=== PATIENT | female | born 1960 | race Caucasian/White ===

== ENCOUNTER 2017-02-13 11:33 | Emergency (ER) | payer OTHER ==
[~2017-02-13] VITALS: Ht 170.2 cm; Wt 76.7 kg
[~2017-02-13 11:33] MED LIST: KRIL1000 PO; OCUVTAB4 PO
[2017-02-13 11:47] VITALS: BP 145/101; PULSE 76; RESP 18; TEMP 97.9; O2SAT 99
--- NOTE | 2017-02-13 12:20 | PD ---
HPI Chief Complaint: Musculoskeletal Complaint Time Seen by Provider: 11:40 Travel History International Travel<30 days: No Contact w/Intl Traveler<30days: No Traveled to known affect area: No History of Present Illness HPI 57 year old female presents emergency department for evaluation of left knee pain and swelling for 4 days. She reports that 4 days ago while getting out of the car she twisted the left knee which caused immediate pain and the swelling has progressed since that time. She reports the pain is localized within the anterior aspect of the knee, nonradiating, worse with flexion, relieved with extension, severity 6 out of 10. Patient reports taking OTC Motrin twice a day with little relief. She reports a history of meniscal tear in that knee. She is followed by with her. She denies numbness or tingling or weakness in the extremity. She has no other medical complaint. [facility] Past Medical History Medical History: Denies Significant Hx Diminished Hearing: No Tetanus Vaccination: < 5 Years Influenza Vaccination: Yes ?: Not Past Surgical History Hysterectomy: Yes Other Surgery: Yes (R CARPAL TUNNEL, LEFT KNEE MENISCUS REPAIR, R ROT CUFF) Social History Alcohol Use: Yes (OCC) Tobacco Use: No Substance Use: No Allergies-Medications (Allergen,Severity, Reaction): Coded Allergies: Penicillin (Verified Allergy, Severe, 02/13/17) Reported Meds & Prescriptions Reported Meds & Active Scripts Active Review of Systems Except as stated in HPI: all other systems reviewed are Neg Physical Exam Narrative GENERAL: Alert, well-appearing female SKIN: Focused skin assessment warm/dry. HEAD: Atraumatic. Normocephalic. EYES: Pupils equal and round. No scleral icterus. No injection or drainage. ENT: No nasal bleeding or discharge. Mucous membranes pink and moist. NECK: Trachea midline. No JVD. CARDIOVASCULAR: Regular rate and rhythm. No murmur appreciated. RESPIRATORY: No accessory muscle use. Clear to auscultation. Breath sounds equal bilaterally. GASTROINTESTINAL: Abdomen soft, non-tender, nondistended. Hepatic and splenic margins not palpable. MUSCULOSKELETAL: No obvious deformities. No clubbing. No cyanosis. No edema. Left knee: Small Joint effusion. Mild anterior tenderness. No warmth or erythema of the joint. The joint is stable. 2+ distal pulses. Normal motor and sensation in the lower extremity. NEUROLOGICAL: Awake and alert. No obvious cranial nerve deficits. Motor grossly within normal limits. Normal speech. PSYCHIATRIC: Appropriate mood and affect; insight and judgment normal. Data Data Last Documented VS Vital Signs Date Time Temp Pulse Resp B/P Pulse Ox O2 Delivery O2 Flow Rate FiO2 02/13/17 11:47 97.9 76 18 145/101 99 Orders Knee, Complete (4vws) (02/13/17 ) MDM Medical Decision Making Medical Screen Exam Complete: Yes Emergency Medical Condition: Yes Differential Diagnosis Internal derangement of the knee, knee sprain, knee fracture Narrative Course 57-year-old female presents emergency for evaluation of left knee pain and swelling 4 days after twisting injury. Patient has history of MCL tear with that knee previously. She is followed by with her. The joint is stable the extremity is neurovascularly intact x-ray pending X-ray of the left knee is negative for fracture shows a large joint effusion. Patient will be treated for knee sprain. Quinn wrap and crutches. NSAIDs. Follow-up with Ortho. Patient agrees to this plan Diagnosis Primary Impression: Knee sprain Qualified Code: S83.92XA - Sprain of left knee, unspecified ligament, initial encounter Referrals: Orthopedist Additional Instructions: Take the NSAIDs as prescribed. Use the Quinn wrap for compression. Ice and elevate the extremity. Make an appointment for follow-up with orthopedic. Return to emergency department if he developed new or worsening symptoms. Scripts Ibuprofen 800 Mg [id number] Mg PO Q8H PRN (Pain/Inflammation) #30 TAB Prov:Dasha Caro 02/13/17 Disposition: 01 DISCHARGE HOME Condition: Stable Dasha Caro Feb 13, 2017 12:20
--- NOTE | 2017-02-13 12:38 | RADRPT ---
EXAM DATE/TIME: 02/13/2017 12:19 [facility] COMPARISON: KNEE LEFT COMPLETE ([id number]), August 15, 2014, 16:54. INDICATIONS : Left knee pain & swelling with no known injury. MEDICAL HISTORY : None. SURGICAL HISTORY : Hysterectomy. Carpal tunnel syndrome. Left knee arthroscopy. Right rotator cuff repair. ENCOUNTER: Initial ACUITY: 4 - 6 days PAIN SCORE: 8/10 LOCATION: Left knee FINDINGS: 4 views of the left knee demonstrate no fracture or dislocation. Mineralization is within normal limi ts. There is lateral joint space narrowing. A moderate to large joint effusion is present. No soft ti ssue abnormality or radiopaque foreign body is identified. CONCLUSION: Large left knee joint effusion. No acute osseous abnormality is seen. Sagar Fofana MD on February 13, 2017 at 12:27 Board Certified Radiologist. This report was verified electronically.
[2017-02-13] MEDS ORDERED: IBUP800T23 PO (12:48)
[2017-02-13] MEDS ORDERED: KETOROLAC TROMETHAMINE 60 MG/2 ML (IM) VIAL IM ONE (13:00)
== END 2017-02-13 13:20 | disposition home or self-care (01) ==
LOC: PHEFT 11:33
DX: S83.92XA Sprain of unspecified site of left knee, initial encounter (principal); X50.1XXA Overexertion from prolonged static or awkward postures, initial encounter; X50.9XXA Other and unspecified overexertion or strenuous movements or postures, initial encounter; Y93.89 Activity, other specified; Y92.9 Unspecified place or not applicable
CPT/HCPCS: 73564; 96372; 99284; J1885

== ENCOUNTER 2017-06-09 13:03 | Emergency (ER) | payer OTHER ==
[~2017-06-09] VITALS: Ht 170.2 cm; Wt 75.0 kg
[~2017-06-09 13:03] MED LIST changes: +IBUP800T23 PO; -KRIL1000 PO; -OCUVTAB4 PO
[2017-06-09 13:08] VITALS: BP 196/91; PULSE 82; RESP 18; TEMP 98; O2SAT 98
[2017-06-09 13:20] VITALS: BP 176/85; PULSE 75; RESP 16
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
[2017-06-09] MEDS ORDERED: KETOROLAC TROMETHAMINE 60 MG/2 ML (IM) VIAL IM ONE (13:45)
[2017-06-09] MEDS ORDERED: ORPHENADRINE INJ 60 MG/2 ML AMP IM ONE (13:45)
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
[2017-06-09] MEDS ORDERED: HYDR-3533 PO (14:30)
[2017-06-09] MEDS ORDERED: ROBA500T PO (14:30)
[2017-06-09] MEDS ORDERED: IBUP-232 PO (14:30)
== END 2017-06-09 15:17 | disposition home or self-care (01) ==
LOC: NEPK 13:03
DX: S93.402A Sprain of unspecified ligament of left ankle, initial encounter (principal); S63.502A Unspecified sprain of left wrist, initial encounter; X50.1XXA Overexertion from prolonged static or awkward postures, initial encounter
CPT/HCPCS: 73110; 73502; 73610; 96372; 99284; E0113; J1885; J2360; L1906; L3908